=== PATIENT | male | born 1960 | race Caucasian/White ===

== ENCOUNTER 2020-11-21 09:33 | Emergency (ER) | payer OTHER ==
[2020-11-21] MEDS ORDERED: TORADOL 10 MG T10 MG PO (13:36)
[2020-11-21] MEDS ORDERED: CYCLOBENZAPRINE10 MG PO (13:36)
== END 2020-11-21 13:50 | disposition home or self-care (01) ==
LOC: ER1 09:33
DX: M54.6 Pain in thoracic spine (principal); Z88.0 Allergy status to penicillin; Z88.2 Allergy status to sulfonamides
CPT/HCPCS: 81001; 96372; 99283; J1885

== ENCOUNTER 2022-01-11 17:20 | Emergency (ER) | payer OTHER ==
[~2022-01-11 17:20] MED LIST: CYCLOBENZAPRINE10 MG PO; TORADOL 10 MG T10 MG PO
[2022-01-11 19:09] LABS: HEMOGLOBIN 15.7 gm/dl (14.0-17.5); RED BLOOD COUNT 4.72 M/UL (4.20-5.50); WHITE BLOOD COUNT 8.3 K/UL (4.5-11.0)
[2022-01-11 19:24] LABS: BUN/CREATININE RATIO 18 (0-10)
== END 2022-01-12 01:01 | disposition left against medical advice (07) ==
LOC: ER1 17:20
PROVIDERS: Emergency Medicine
DX: Z53.21 Procedure and treatment not carried out due to patient leaving prior to being seen by health care provider (principal)
CPT/HCPCS: 71045; 80053; 82550; 82553; 84484; 85025; 93005

== ENCOUNTER → 2022-01-23 | Outpatient (CLI) | payer OTHER | LOC: HEART 5 11:14 | DX: R07.9 Chest pain, unspecified (principal); R00.0 Tachycardia, unspecified ==